=== PATIENT | female | born 1945 | race Caucasian/White ===

== ENCOUNTER 2023-10-31 11:10 | Outpatient (CLI) | payer MEDICARE, BC, SELFPAY | END 2023-10-31 11:11 | disposition home or self-care (01) | LOC: NFLDREF 11-02 08:41 | PROVIDERS: Visit Provider Nurse Practitioner Family | DX: N30.90 Cystitis, unspecified without hematuria (principal) | CPT/HCPCS: 87086; 87186 ==

== ENCOUNTER 2023-12-31 09:42 | Outpatient (CLI) | payer MEDICARE, BC, SELFPAY ==
--- OUTSIDE RECORDS SUMMARY | 2024-01-03 07:05 | XMS_ITS | Referral Summary ---
Author Organization [facility] Address [address] [place] [address] Care Team Providers Care Hosiery Mender Name Role Phone Elsewhere, Pcp Primary Care Provider Unavailabl e Source Comments Patient records contain information from all sites at [facility]. For routine questions regarding patient records, call [phone] during business hours, M-F 8:00 AM - 5:00 PM Central Time. Record requests for emergency care only can be directed to [phone] at any time.[facility] Allergies Active Allergy Reactions Criticality Noted Date Comments Hydrocodone-Acetaminophen Other (see com ments),Edema (Reselect Reaction) Medium 02/07/2017 Vicodin Sulfa (Sulfonamide Antibiotics) Rash Medium 06/16/2020 Medications Medication Sig Dispensed Refills Start Date End Date Status flecainide (TAMBOCOR) 100 mg tablet Take 100 mg by mouth every 12 (twelve) hours. Active omeprazole (PriLOSEC) [address] capsule Take 20 mg by mouth 2 (two) times a day. Active warfarin (COUMADIN) 2 mg tablet Take by mouth. 4 mgs -4 times a week, 6 mgs -3 times a week 08/26/2021 Active dilTIAZem CD (CARDIZEM CD/CARTIA XT) 240 mg 24 hr capsule Take 1 capsule (240 mg total) by mouth daily. 90 capsule 3 01/09/2022 Active calcium phosphate/melatonin (KANDY-SELTZER PM, MELATONIN, ORAL) Take 2 tablets by mouth at bedtime. Active warfarin (COUMADIN) 6 mg tablet 6mg three days and 4mg four days Orally as directed Active OLIVE LEAF EXTRACT ORAL 2 TAB Orally daily Active cholecalciferol, vitamin D3, (cholecalciferol) 25 mcg (1,000 Unit) tablet Take 25 mcg by mouth daily. Active Hospital, Clinic, or Other Facility Administered Medication Ordered Dose Route Frequency Start Date End Date Status alteplase 1 mg/mL injection 2 mg (CATHFLO ACTIVASE)Indications:Failed Total Hip Arthroplasty Subsequent Left,Primary Osteoarthritis Hip Right 2 mg cath As needed 01/31/2021 Active alteplase 1 mg/mL injection 2 mg (CATHFLO ACTIVASE)Indications:Failed Total Hip Arthroplasty Subsequent Left,Primary Osteoarthritis Hip Right 2 mg cath As needed 01/31/2021 Active Active Problems Problem Noted Date Diagnosed Date History Of Falling 01/16/2022 Failed Total Hip Arthroplasty Subsequent Left Primary Osteoarthritis Hip Right 09/27/2020 Overview (09/27/2020): Added automatically from request for surgery [id number] Pain Hip Left 06/10/2020 Overview (06/10/2020): Added automatically from request for surgery [id number] Atrial Fibrillation 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): on fleicanide and xarelto Ablation Atrioventricular Node Status Post Overview (06/18/2020): unsuccessful to convert AFIB Hypertension NOS Gastroesophageal Reflux Disease NOS Cancer Breast 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): 2001 and 2014, lumpectomy with radiation, then double mastectomy Transient Ischemic Attack Pe rsonal History Or Stroke Personal History Sick Sinus Syndrome Pacemaker Cardiac Status Post Immunizations Name Administration Dates Next Due SARS-COV-2 (COVID-19) - MODERNA(Discontinued) ,05/26/2020 Social History Tobacco Use Types Packs/Day Years Used Date Smoking Tobacco: Former Cigarettes 2 15.3 0 1961 - 02/10/1977 Smokeless Tobacco: Never Tobacco Cessation:Counseling Given: Not Answered Alcohol Use Standard Drinks/Week Comments Yes 0 (1 standard drink = 0.6 oz pur e alcohol) 1 drink per month Humiliation, Afraid, Rape, and Kick questionnair e Answer Date Recorded Within the last year, have y ou been afraid of your partner or ex-partner? No 02/27/2022 Emotionally Abused Not on file 02/27/2022 Within the last year, have y ou been kicked, hit, slapped, or otherwise physically hurt by your partner or ex-partner? No 02/27/2022 Within the last year, have y ou been raped or forced to have any kind of sexual activity by your partner or ex-partner? No 02/27/2022 Social Connection and Isolat ion Panel [NHANES] Answer Date Recorded In a typical week, how many times do you talk on the phone with family, friends, or neighbors? More than three times a week 02/27/2022 How often do you get togethe r with friends or relatives? Three times a week 02/27/2022 How often do you attend chur or scientologist services? More than 4 times per year 02/27/2022 Do you belong to any clubs o r organizations such as jewish groups, unions, fraternal or athletic groups, or school groups? Yes 02/27/2022 How often do you attend meet ings of the clubs or organizations you belong to? More than 4 times per year 02/27/2022 Are you , , di vorced, , never , or living with a partner? 02/27/2022 AUDIT-C Answer Date Recorded Q1: How often do you have a drink containing alc ohol? Monthly or less 02/27/2022 Q2: How many drinks containi ng alcohol do you have on a typical day when you are drinking? 1 or 2 02/27/2022 Q3: How often do you have si x or more drinks on one occasion? Never 02/27/2022 Overall Financial Resource Strain (CARDIA) Answe r Date Recorded How hard is it for you to pa y for the very basics like food, housing, medical care, and heating? Not very hard 02/27/2022 [facility] - Occupational Stress Questionnaire Answer Date Recorded Do you feel stress - tense, restless, nervous, or anxious, or unable to sleep at night because your mind is troubled all the time - these days? Only a little 02/27/2022 Exercise Vital Sign Answer Date Recorde d On average, how many days pe r week do you engage in moderate to strenuous exercise (like a brisk walk)? 1 day 02/27/2022 On average, how many minutes do you engage in exercise at this level? 60 min 02/27/2022 Hunger Vital Sign Answer Date Recorded Within the past 12 months, y ou worried that your food would run out before you got the money to buy more. Never true 02/28/20 22 Within the past 12 months, t he food you bought just didn't last and you didn't have money to get more. Never true 02/27/2022 PRAPARE - Transportation Answer Date Re corded In the past 12 months, has l ack of transportation kept you from medical appointments or from getting medications? No 02/14 In the past 12 months, has l ack of transportation kept you from meetings, work, or from getting things needed for daily living? No 02/27/2022 Housing Stability Vital Sign Answer Bello e Recorded In the last 12 months, was t here a time when you were not able to pay the mortgage or rent on time? No 02/27/2022 In the last 12 months, how many places have you lived? 1 02/27/2022 In the last 12 months, was t here a time when you did not have a steady place to sleep or slept in a snf (including now)? No 02/27/2022 Nutrition Answer Date Recorded Nutrition: EVOO Fat Source Yes 02/27 On average, how many serving s of fruits and vegetables do you eat per day (serving size is equal to 1 cup or approximately the size of a tennis ball)? 2-3 02/27/2022 Dental Answer Date Recorded Dental: Regular Dentist Yes 02/28/20 Employment Answer Date Recorded Employment status Retired 02/27/2022 Education Answer Date Recorded What is the highest level of school you have completed or the highest degree you have received? 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 Last Filed Vital Signs Vital Sign Reading Time Taken Comments Blood Pressure 109/61 05/03/2022 11:16 AM MST Pulse 103 05/03/2022 11:16 AM MST Temperature 37.2 ??C (99 ??F) 05/03/2022 11:16 AM MST Respiratory Rate 16 05/03/2022 11:16 AM MST Oxygen Saturation 94% 05/03/2022 11:16 AM MST Inhaled Oxygen Concentration - - Weight 77 kg (169 lb 12.1 oz) 05/02/2022 8:44 AM MST Height 164 cm (5' 4.57) 05/02/2022 8:44 AM MST Body Mass Index 28.63 05/02/2022 8:44 AM MST Plan of Treatment Not on file Medical Devices Implanted Type Area Logger All Round Device Identifier Shelf Expiration Date Model / Serial / Lot Cmnt-R Bn 1x40 - [id number] Implanted:Qty : 1 on 12/27/2020 by Aubrey Lennon M.D. at [facility] Bone Cement Left: Hip Eri Biomet [id number] 09/14/2023 [id number] / / [id number] Cmnt-R Bn 1x40 - [id number] Implanted:Qty : 1 on 12/27/2020 by Aubrey Lennon M.D. at [facility] Bone Cement Left: Hip Eri Biomet [id number] 01/13/2025 [id number] / / [id number] Bilateral Breast Implant Breast Implant Bilatera l: Breast Biotronik 377 176 Solia S 45 [id number] Implanted: (Quantity not on file) Cardiac Lead BIOTRONIK 377 176 SOLIA S 45 / [id number] / Biotronik 377 177 Solia S 53 [id number] Implanted: (Quantity not on file) Cardiac Lead BIOTRONIK 377 177 SOLIA S 53 / [id number] / Pin Left Foot Hardware e.g. pins/screws/ rods Left: Foot Shll Acet Trd Ii Chl 50d - Sna - [id number] Implanted:Qty : 1 on 10/07/2020 by Aubrey Lennon M.D. at [facility] Hip Implant Right: Hip Bridgett 04/23/2024 702-11-50D / NA / [id number] Scrw Hex 6.5x35 - Sna - [id number] Implanted:Qty : 1 on 10/07/2020 by Aubrey Lennon M.D. at [facility] Hip Implant Right: Hip Leroy 04/25/2025 7626-1095 / NA / [id number] Scrw Hex 6.5x25 - Sna - [id number] Implanted:Qty : 1 on 10/07/2020 by Aubrey Lennon M.D. at [facility] Hip Implant Right: Hip Leroy 06/30/2025 6824-2111 / NA / [id number] Lnr X3 Szd 32 - Sna - [id number] Implanted:Qty : 1 on 10/07/2020 by Aubrey Lennon M.D. at [facility] Hip Implant Right: Hip Leroy 05/03/2025 623-00-32D / NA / [id number] Hip Stm Acc Sz4 51k077 - Sna - [id number] Implanted:Qty : 1 on 10/07/2020 by Aubrey Lennon M.D. at [facility] Hip Implant Right: Hip Bridgett 08/11/2025 3407-3881 / NA / [id number] Fem Hd Blx V40 +0x32 - Sna - [id number] Implanted:Qty : 1 on 10/07/2020 by Aubrey Lennon M.D. at [facility] Hip Implant Right: Hip Leroy 08/01/2025 6570-0-132 / NA / [id number] Shll Acet Trd Ii Chl 52e - [id number] Implanted:Qty : 1 on 05/02/2022 by Aubrey Lennon M.D. at [facility] Hip Implant Left: Hip Bridgett 03/14/2027 702-11-52E / / [id number] Scrw Hex 6.5x20 - [id number] Implanted:Qty : 1 on 05/02/2022 by Aubrey Lennon M.D. at [facility] Hip Implant Left: Hip Bridgett 02/27/2027 7851-1396 / / [id number] Scrw Hex 6.5x40 - [id number] Implanted:Qty : 1 on 05/02/2022 by Aubrey Lennon M.D. at [facility] Hip Implant Left: Hip Bridgett 02/12/2027 6283-7987 / / [id number] Scrw Hex 6.5x40 - [id number] Implanted:Qty : 1 on 05/02/2022 by Aubrey Lennon M.D. at [facility] Hip Implant Left: Hip Leroy 02/20/2027 4088-1300 / / VCMH Lnr X3 Yosef 36 - [id number] Implanted:Qty : 1 on 05/02/2022 by Aubrey Lennon M.D. at [facility] Hip Implant Left: Hip Bridgett 03/20/2027 723-00-36E / / [id number] Hip Stm Rstn Cmnt +0x21 - [id number] Implanted:Qty : 1 on 05/02/2022 by Aubrey Lennon M.D. at [facility] Hip Implant Left: Hip Bridgett [id number] 10/06/2026 6276-1-021 / / [id number] Fem Hd Blx +2.5x36 - [id number] Implanted:Qty : 1 on 05/02/2022 by Aubrey Lennon M.D. at [facility] Hip Implant Left: Hip Bridgett 01/29/2027 6570-0-536 / / [id number] Knee Implant Bharat Knee Implant Bilatera l: Knee Dental Implants Misc Other Mouth Bilateral Ocular (Eye) Implant Ocular (Eye) Implant Bilatera l: Eye Leroy Orthodoxy Modular Hip System 115mm X 18mm Implanted:Qty : 1 on 05/02/2022 by Aubrey Lennon M.D. at [facility] Orthopedic Other Left: Hip Bridgett [id number] 09/07/2026 6276-7-418 / / [id number] Biotronik [id number] Eluna 8 Abraham [id number] Implanted: (Quantity not on file) Pacemaker BIOTRONIK [id number] ELUNA 8 ABRAHAM / [id number] / Pacemaker-07/15 Implanted:04/2016 (Quantity not on file) Pacemaker Chest Explanted Type Area Logger All Round Device Identifier Shelf Expiration Date Model / Serial / Lot Scrw Hex 6.5x30 - [id number] Explanted:Qty : 1 on 10/07/2020 at [facility] Hip Implant Right: Hip Bridgett 06/22/2025 8110-7069 / / [id number] Lnr X3 Szd 32 - [id number] Implanted:Qty : 1 on 06/24/2020 by Aubrey Lennon M.D. at [facility] Explanted:Qty : 1 on 12/27/2020 by Aubrey Lennon M.D. Hip Implant Left: Hip Leroy 04/02/2025 623-00-32D / / [id number] Hip Stm Acc Sz4 02f748 - [id number] Implanted:Qty : 1 on 06/24/2020 by Aubrey Lennon M.D. at [facility] Explanted:Qty : 1 on 12/27/2020 by Aubrey Lennon M.D. Hip Implant Left: Hip Leroy 04/29/2025 7868-9533 / / [id number] Fem Hd Blx -4x32 - [id number] Implanted:Qty : 1 on 06/24/2020 by Aubrey Lennon M.D. at [facility] Explanted:Qty : 1 on 12/27/2020 by Aubrey Lennon M.D. Hip Implant Left: Hip Bridgett 01/26/2025 6570-0-032 / / [id number] Shll Acet Trd Ii Chl 50d - [id number] Implanted:Qty : 1 on 06/24/2020 by Aubrey Lennon M.D. at [facility] Explanted:Qty : 1 on 12/27/2020 by Aubrey Lennon M.D. Hip Implant Left: Hip Bridgett 08/26/2023 702-11-50D / / [id number] Scrw Hex 6.5x30 - [id number] Implanted:Qty : 1 on 06/24/2020 by Aubrey Lennon M.D. at [facility] Explanted:Qty : 1 on 12/27/2020 by Aubrey Lennon M.D. Hip Implant Left: Hip Bridgett 01/21/2025 6491-9806 / / [id number] Scrw Hex 6.5x35 - [id number] Implanted:Qty : 1 on 06/24/2020 by Aubrey Lennon M.D. at [facility] Explanted:Qty : 1 on 12/27/2020 by Aubrey Lennon M.D. Hip Implant Left: Hip Leroy 12/29/2024 6706-5912 / / 26D Hip Stm Prs Cmnt Std 105 - [id number] Implanted:Qty : 1 on 12/27/2020 by Aubrey Lennon M.D. at [facility] Explanted:Qty : 1 on 05/02/2022 by Aubrey Lennon M.D. Hip Implant Left: Hip Depuy Synthes 11/13/2029 1541-01-000 / / [id number] Shll Acet Prs Cmnt 32x42 - [id number] Implanted:Qty : 1 on 12/27/2020 by Aubrey Lennon M.D. at [facility] Explanted:Qty : 1 on 05/02/2022 by Aubrey Lennon M.D. Hip Implant Left: Hip Depuy Synthes 07/14/2025 [id number] / / [id number] Fem Hd Art Ez +1x32 - [id number] Implanted:Qty : 1 on 12/27/2020 by Aubrey Lennon M.D. at [facility] Explanted:Qty : 1 on 05/02/2022 by Aubrey Lennon M.D. 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 Advance Directives 06/24/2020 9:38 AM Italo Castillo Jr.[facility] PO * Full Code (Latest Code Status on File) Date Activated Date Inactivated Comments 05/02/2022 6:25 PM 05/03/2022 3:50 PM Question Answer Comments Full Code: Not Discussed Due to: Patient not available * Full Code Date Activated Date Inactivated Comments 05/02/2022 9:50 AM 05/02/2022 6:25 PM Question Answer Comments Full Code: Not Discussed Due to: Patient not available * Full Code Date Activated Date Inactivated Comments 10/07/2020 12:04 PM 10/07/2020 11:13 PM Question Answer Comments Full Code: Not Discussed Due to: Patient not available Healthcare Agents on File Name Relationship Healthcare Agent Relationship Communication Italo Castillo Son Health Care Agent Marcelo Castillo Jr. Son First Alternate Health Care Agent Bartolome Castillo Son First Alternate Health Care Agent Care Teams Hosiery Mender Relationship Specialty Start Date End Date Elsewhere, Pcp PCP - General Family Medicine 10/07/20
--- OUTSIDE RECORDS SUMMARY | 2024-01-03 07:05 | XMS_ITS | Clinical Summary ---
Author Organization [facility] Address [address] [place] [address] Care Team Providers Care Clinical Researcher Name Role Phone Elsewhere, Pcp Primary Care Provider Unavailabl e Source Comments Patient records contain information from all sites at [facility]. For routine questions regarding patient records, call [phone] during business hours, M-F 8:00 AM - 5:00 PM Central Time. Record requests for emergency care only can be directed to [phone] at any time.[facility] Allergies Active Allergy Reactions Criticality Noted [...] (09/27/2020): Added automatically from request for surgery [id number] Pain Hip Left 06/10/2020 Overview (06/10/2020): Added automatically from request for surgery [id number] Atrial Fibrillation 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): on [...] Next Due SARS-COV-2 (COVID-19) - MODERNA(Discontinued) ,05/26/2020 Family History Medical History Relation Name Comments Stroke Father Albino Coburn Sr Transient ischemic attack Father Albino Coburn Sr Colon cancer Father's Brother Atrial fibrillation Mother Daisy Coburn Stroke Mother Daisy Cobrun Thyroid disease Mother Daisy Coburn Transient ischemic attack Mother Daisy Coburn Atrial fibrillation Sister 1 Breast cancer Sister 1 TIA - Transient ischaemic attack Sister 1 Breast cancer Sister 2 Daiys Oblouk Recurred 2019 to spine, liver, kidney Parkinson disease Sister 3 Barbara Paniagua Parkinsonism Sister 3 Barbara Paniagua Skin cancer Sister 3 Barbara Paniagua Had Moes p rocedure twice Stroke Sister 3 Barbara Paniagua Thyroid disease Sister 4 Angelina Prince Cervical cancer Neg Hx Ovarian cancer Neg Hx Uterine cancer Neg Hx Relation Name Status Comments Father Albino Coburn Sr Father's Brother Mother Daisy Coburn Sister 1 Sister 2 Daisy Oblouk Sister 3 Barbara Paniagua Sister 4 Angelina Prince Social History Tobacco Use Types Packs/Day Years [...] 02/27/2022 How often do you attend chur ch or tenriism services? More than 4 times per year 02/27/2022 Do you belong to any clubs o r organizations such as mormonism groups, unions, fraternal or athletic groups, or [...] care, and heating? Not very hard 02/27/2022 [facility] - Occupational Stress [...] place to sleep or slept in a alf (including now)? No 02/27/2022 Nutrition Answer Date [...] Master's degree (e.g., MA, MS, Eron, MEd, EMERGENCY ROOM RN, HONEY) 06/05/2020 Sex and Gender Information Value Date Recorded Sex Assigned at Female 01/14/2021 7:36 PM CDT Gender Identity Female 02/18/2018 11:13 AM MEDICAL INFORMATION OFFICER Sexual Orientation Straight 02/18/2018 11 :13 AM MEDICAL INFORMATION OFFICER Last Filed Vital Signs Vital Sign Reading [...] 05/02/2022 8:44 AM MST Plan of Treatment Health Maintenance Due Date Last Done Comments Hepatitis C Screening 1945 Office Visit for Blood Press ure Check / Re-check 01/16/2023 01/16/2022 Depression Screening (Annual PHQ-2) 04/16/2023 Fall Risk Screen (Annual) 04/16/2023 COVID-19 Vaccine (4 - 2022-2 4 season) 2023 02/23/2021, 06/23/2020, 05/26/2020 Influenza Vaccine (#1) 2024 3, 12/29/2021, 02/17/2021, Additional history exists DTaP,Tdap,and Td Vaccines (2 - Td or Tdap) 02/14/2025 02/14/2015 Mammogram Discontinued 12/25/2014 Zoster Vaccines Completed 06/11/2019, 02/01/2019 Pneumococcal vaccine (65+ years) Completed 01/18/2023, 03/03/2015, 03/02/2015 Medical Devices Implanted Type Area Personal Clothing Laundry Aide Device Identifier Shelf Expiration Date Model / Serial / Lot Cmnt-R Bn 1x40 - [id number] Implanted:Qty : 1 on 12/27/2020 by Aubrey Lennon M.D. at [facility] Bone Cement Left: Hip Eri Biomet [id number] 09/14/2023 [id number] / / [id number] Cmnt-R Bn 1x40 - [id number] Implanted:Qty : 1 on 12/27/2020 by Aubrey Lennon M.D. at [facility] Bone Cement Left: Hip Eri Biomet [id number] 01/13/2025 [id number] / / [id number] Bilateral Breast Implant Breast Implant Bilatera l: Breast Biotronik 377 176 Solia S 45 [id number] Implanted: (Quantity not on file) Cardiac Lead BIOTRONIK 377 176 SOLIA S 45 / [id number] / Biotronik 377 177 Solia S 53 [id number] Implanted: (Quantity not on file) Cardiac Lead BIOTRONIK 377 177 SOLIA S 53 / [id number] / Pin Left Foot Hardware e.g. pins/screws/ rods Left: Foot Shll Acet Trd Ii Chl 50d - Sna - [id number] Implanted:Qty : 1 on 10/07/2020 by Aubrey Lennon M.D. at [facility] Hip Implant Right: Hip Bridgett 04/23/2024 702-11-50D / NA / [id number] Scrw Hex 6.5x35 - Sna - [id number] Implanted:Qty : 1 on 10/07/2020 by Aubrey Lennon M.D. at [facility] Hip Implant Right: Hip [place] 04/25/2025 5484-2682 / NA / [id number] Scrw Hex 6.5x25 - Sna - [id number] Implanted:Qty : 1 on 10/07/2020 by Aubrey Lennon M.D. at [facility] Hip Implant Right: Hip [place] 06/30/2025 9279-2415 / NA / [id number] Lnr X3 Szd 32 - Sna - [id number] Implanted:Qty : 1 on 10/07/2020 by Aubrey Lennon M.D. at [facility] Hip Implant Right: Hip Bridgett 05/03/2025 623-00-32D / NA / [id number] Hip Stm Acc Sz4 13r772 - Sna - [id number] Implanted:Qty : 1 on 10/07/2020 by Aubrey Lennon M.D. at [facility] Hip Implant Right: Hip [place] 08/11/2025 3872-7734 / NA / [id number] Fem Hd Blx V40 +0x32 - Sna - [id number] Implanted:Qty : 1 on 10/07/2020 by Aubrey Lennon M.D. at [facility] Hip Implant Right: Hip Bridgett 08/01/2025 6570-0-132 / NA / [id number] Shll Acet Trd Ii Chl 52e - [id number] Implanted:Qty : 1 on 05/02/2022 by Aubrey Lennon M.D. at [facility] Hip Implant Left: Hip Bridgett 03/14/2027 702-11-52E / / [id number] Scrw Hex 6.5x20 - [id number] Implanted:Qty : 1 on 05/02/2022 by Aubrey Lennon M.D. at [facility] Hip Implant Left: Hip [place] 02/27/2027 5510-2341 / / [id number] Scrw Hex 6.5x40 - [id number] Implanted:Qty : 1 on 05/02/2022 by Aubrey Lennon M.D. at [facility] Hip Implant Left: Hip Bridgett 02/12/2027 4537-7351 / / [id number] Scrw Hex 6.5x40 - [id number] Implanted:Qty : 1 on 05/02/2022 by Aubrey Lennon M.D. at [facility] Hip Implant Left: Hip Bridgett 02/20/2027 3473-6252 / / [facility] Lnr X3 Yosef 36 - [id number] Implanted:Qty : 1 on 05/02/2022 by Aubrey Lennon M.D. at [facility] Hip Implant Left: Hip Bridgett 03/20/2027 723-00-36E / / [id number] Hip Stm Rstn Cmnt +0x21 - [id number] Implanted:Qty : 1 on 05/02/2022 by Aubrey Lennon M.D. at [facility] Hip Implant Left: Hip [place] [id number] 10/06/2026 6276-1-021 / / [id number] Fem Hd Blx +2.5x36 - [id number] Implanted:Qty : 1 on 05/02/2022 by Aubrey Lennon M.D. at [facility] Hip Implant Left: Hip Bridgett 01/29/2027 6570-0-536 / / [id number] Knee Implant Bharat Knee Implant Bilatera l: Knee Dental Implants Misc Other Mouth Bilateral Ocular (Eye) Implant Ocular (Eye) Implant Bilatera l: Eye Bridgett [employer] Modular Hip System 115mm X 18mm Implanted:Qty : 1 on 05/02/2022 by Aubrey Lennon M.D. at [facility] Orthopedic Other Left: Hip [place] [id number] 09/07/2026 6276-7-418 / / [id number] Biotronik 954870 Eluna 8 Abraham [id number] Implanted: (Quantity not on file) Pacemaker BIOTRONIK [id number] ELUNA 8 ABRAHAM / [id number] / Pacemaker-07/15 Implanted:04/2016 (Quantity not on file) Pacemaker Chest Explanted Type Area Personal Clothing Laundry Aide Device Identifier Shelf Expiration Date Model / Serial / Lot Scrw Hex 6.5x30 - [id number] Explanted:Qty : 1 on 10/07/2020 at [facility] Hip Implant Right: Hip Bridgett 06/22/2025 6541-1986 / / [id number] Lnr X3 Szd 32 - [id number] Implanted:Qty : 1 on 06/24/2020 by Aubrey Lennon M.D. at [facility] Explanted:Qty : 1 on 12/27/2020 by Aubrey Lennon M.D. Hip Implant Left: Hip [place] 04/02/2025 623-00-32D / / [id number] Hip Stm Acc Sz4 97j651 - [id number] Implanted:Qty : 1 on 06/24/2020 by Aubrey Lennon M.D. at [facility] Explanted:Qty : 1 on 12/27/2020 by Aubrey Lennon M.D. Hip Implant Left: Hip [place] 04/29/2025 5791-5097 / / [id number] Fem Hd Blx -4x32 - [id number] Implanted:Qty : 1 on 06/24/2020 by Aubrey Lennon M.D. at [facility] Explanted:Qty : 1 on 12/27/2020 by Aubrey Lennon M.D. Hip Implant Left: Hip [place] 01/26/2025 6570-0-032 / / [id number] Shll Acet Trd Ii Chl 50d - [id number] Implanted:Qty : 1 on 06/24/2020 by Aubrey Lennon M.D. at [facility] Explanted:Qty : 1 on 12/27/2020 by Aubrey Lennno M.D. Hip Implant Left: Hip Bridgett 08/26/2023 702-11-50D / / [id number] Scrw Hex 6.5x30 - [id number] Implanted:Qty : 1 on 06/24/2020 by Aubrey Lennon M.D. at [facility] Explanted:Qty : 1 on 12/27/2020 by Aubrey Lennon M.D. Hip Implant Left: Hip [place] 01/21/2025 9413-9836 / / [id number] Scrw Hex 6.5x35 - [id number] Implanted:Qty : 1 on 06/24/2020 by Aubrey Lennon M.D. at [facility] Explanted:Qty : 1 on 12/27/2020 by Aubrey Lennon M.D. Hip Implant Left: Hip [place] 12/29/2024 0175-7524 / / [id number] Hip Stm Prs Cmnt Std 105 - [id number] Implanted:Qty : 1 on 12/27/2020 by Aubrey Lennon M.D. at [facility] Explanted:Qty : 1 on 05/02/2022 by Aubrey Lennon M.D. Hip Implant Left: Hip Depuy Synthes 11/13/2029 1541-01-000 / / [id number] Shll Acet Prs Cmnt 32x42 - [id number] Implanted:Qty : 1 on 12/27/2020 by Aubrey Lennon M.D. at [facility] Explanted:Qty : 1 on 05/02/2022 by Aubrey Lennon M.D. Hip Implant Left: Hip Depuy Synthes 07/14/2025 [id number] / / [id number] Fem Hd Art Ez +1x32 - [id number] Implanted:Qty : 1 on 12/27/2020 by Aubrey Lennon M.D. at [facility] Explanted:Qty : 1 on 05/02/2022 by Aubrey Lennon M.D. 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
--- OUTSIDE RECORDS SUMMARY | 2024-01-03 07:05 | XMS_ITS ---
Author Organization [facility] Address [address] [place] [address] Care Team Providers Care Box Inspector Name Role Phone Unavailable Unavailable Unavailable Surgery Details Not on file Complications Check Surgery Details section. Procedure Estimated Blood Loss Check Surgery Details section. Procedure Findings Check Surgery Details section. Procedure Specimens Taken Check Surgery Details section.
--- OUTSIDE RECORDS SUMMARY | 2024-01-03 07:05 | XMS_ITS | Patient Health Record ---
Author Organization [facility] Address [address] [place], [place] [id number] Care Team Providers Care [employer] Supervisor Name Role Phone SAYRA MEDELLIN Primary Care Provider Allergies Allergen (clinical drug ingredient) Drug/Non Drug Allergy documented on EMR Reaction Allergy Type Onset Date Status Substance with sulfonamide structure and antibacterial mechanism of action (substance) Sulfa Antibiotics Unknown Drug Allergy Active Vicodin Unknown Drug Allergy Active Results Component Value Reference Range Notes CELIAC DISEASE COMP PNL,ADUL T,GLIADIN Ab IgA Reviewed date:07/02/2023 11:06:33 AM Interpretation: Performing Lab:[facility] [id number] , [id number] [place] Notes/Report: IgA 374 81 - 463 mg/dL tTG IgA is not, in and of itself, diagnostic for celiac disease (gluten-sensitive enteropathy). Results should be considered in conjunction with other laboratory test results and the patient's clinical condition to make an appropriate diagnosis. The magnitude of the reported IgA levels cannot be correlated to an endpoint titer. Reported results were determined using assays performed on the [employer] 2200. Results obtained with different manufacturers' assay may not be used interchangeably. DGP IgA is not, in and of itself, diagnostic for celiac disease (gluten-sensitive enteropathy). Results should be considered in conjunction with other laboratory test results and the patient's clinical condition to make an appropriate diagnosis. The magnitude of the reported DGP IgA levels cannot be correlated to an endpoint titer. Reported results were determined using assays performed on the [employer] 2200. Results obtained with different manufacturers' assay may not be used interchangeably. Tissue Transglutaminase Antibody IgA <0.5 <=14.9 U/mL tTG IgA Reference Range: < 15.0 Negative >=15.0 Positive Tissue Transglutaminase Antibody IgA Result Negative Negative Gliadin (Deamidated) Antibod y IgA 0.3 <=14.9 U/mL DGP IgA Reference Range: < 15.0 Negative >=15.0 Positive Gliadin (Deamidated) Antibod y IgA Result Negative Negative COMPREHENSIVE METABOLIC PANE L includes eGFR Reviewed date:07/19/2023 08:57:16 AM Interpretation: Performing Lab:[facility] [id number], [id number] [place] Notes/Report: Fasting: Yes NON-FASTING Glucose 109 70 - 99 mg/dL Glucose refere nce range reflects fasting state. Urea Nitrogen (BUN) 16 8 - 36 mg/dL Creatinine 0.96 0.51 - 1.08 mg/dL eGFRcr CKD-EPI 60 >=60 mL/min/1.73m2 eGFRcr calculated using the CKD-EPI 2020 equation BUN/Creatinine Ratio 16.7 10.0 - 28.0 Sodium 143 135 - 145 mmol/L Potassium 5.1 3.6 - 5.3 mmol/L Chloride 105 95 - 109 mmol/L Carbon Dioxide (CO2) 27 20 - 31 mmol/L Anion Gap 11 4 - 18 Protein, Total 7.2 6.0 - 7.7 g/dL Albumin 4.4 3.8 - 5.1 g/dL Globulin 2.8 1.7 - 3.3 g/dL Albumin/Globulin Ratio 1.6 1.3 - 2.7 Calcium 9.7 8.7 - 10.4 mg/dL Alkaline Phosphatase 109 42 - 146 IU/L Alanine Aminotransferase 16 5 - 46 IU/L Aspartate Aminotransferase 16 11 - 40 IU/L Bilirubin, Total 0.3 <=1.3 mg/dL Abdominal Ultrasound Complet e Reviewed date:07/19/2023 08:35:43 AM Interpretation: Performing Lab: Notes/Report: Reason For Referral Reason eval & treat Diagnosis 1 Angiolipoma (D17.9) Referral Organization [facility] Referring Provider First Name SAYRA Referring Provider Last Name LACIE Referring Provider Speciality Internal M edicine Referred Provider Anne Must[facility] Referred Provider Specialty Nephrology Referral Priority Routine Medications Medication SIG (Take, Route, Frequency, Duration) Notes Start Date End Date Status dilTIAZem HCl ER 180 MG 1 tablet Orally Once a day Active Vitamin E 180 MG (400 UNIT) 2 capsule Orally in the morning Active Magnesium - as directed Orally 500 mg- once a day Active Tylenol PM Extra Strength 500-25 MG 1 tablet at bedtime as needed Orally Once a day Active [place] 500 MG as directed Orally 2 capsules in the morning Active Aspirin 81 81 MG 1 tablet Orally Once a day Not-Taking Flecainide Acetate 100 MG 0.5 tablet Orally every 12 hrs Active Warfarin Sodium 4 MG 1 tablet Orally Once a day 4MG 4x wk 6MG 3x week Active Immunizations Vaccine Route Administration Date Status Comme nts Pneumococcal Unknown 01/18/2023 Administered SHINGRIX Unknown 01/18/2023 Administered Social History Tobacco Use: Social History Observation Description Date Details (start date - stop date) Former Smoker NA - NA AUDIT-C (Standard) Question Answer Notes Did you have a drink contain ing alcohol in the past year? Yes How often did you have six o r more drinks on one occasion in the past year? Never (0 point) How many drinks did you have on a typical day when you were drinking in the past year? 1 or 2 drinks (0 point) How often did you have a dri nk containing alcohol in the past year? Monthly or less (1 point) Points 1 Interpretation Negative Tobacco Control (Standard) Question Answer Notes Tobacco use: Former smoker How long has it been since y ou last smoked? 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) Active confirmed Problem 94176199 Chronic cough (R05.3) Active confirmed Vital Signs Temperature 97.4 degrees Fahrenheit 07/17/2023 Oximetry 94 07/17/2023 Blood pressure diastolic 60 mm Hg 07/17/2023 Height 65 in 07/17/2023 Blood pressure systolic 124 mm Hg 07/17/2023 Weight 176.3 lbs 07/17/2023 BMI 29.33 kg/m2 07/17/2023 Encounters Encounter Location Date Provider Diagnosis [facility] [address] [place], [place] [id number] 06/14/2023 SAYRA MEDELLIN [facility] [address] [place] [id number] 06/19/2023 SAYRA MEDELLIN [facility] [address] [place], [place] [id number] 06/20/2023 SAYRA MEDELLIN Irritable bowel syndrome with both constipation and diarrhea K58.2 ; Paroxysmal atrial fibrillation I48.0 ; Shortness of breath R06.02 ; History of breast cancer Z85.3 ; Pulmonary fibrosis J84.10 and Chronic cough R05.3 [facility] [address] [place], [place] [id number] 06/20/2023 SAYRA MEDELLIN [facility] [address] [place], [place] [id number] 07/05/2023 SAYRA MEDELLIN [facility] [address] [place], [place] [id number] 07/17/2023 SAYRA MEDELLIN Paroxysmal atrial fibrillation I48.0 ; Chest pain, unspecified type R07.9 ; Pulmonary fibrosis J84.10 ; Irritable bowel syndrome with both constipation and diarrhea K58.2 and Excessive flatus R14.3 [facility] [address] [place], [place] [id number] 07/17/2023 SAYRA MEDELLIN Excessive flatus R14 .3 ; Irritable bowel syndrome with both constipation and diarrhea K58.2 and Chest pain, unspecified type R07.9 [facility] [address] [place], [place] [id number] 07/18/2023 SAYRA MEDELLIN Excessive flatus R14 .3 ; Irritable bowel syndrome with both constipation and diarrhea K58.2 and Chest pain, unspecified type R07.9 Assessments Encounter Date Diagnosis (ICD Code) Assessment Notes Treatment Notes Treatment Clinical Notes 06/20/2023 Paroxysmal atrial fibrillation (ICD-10 - I48.0) Currently appears to be in normal sinus rhythm, follow-up with cardiology as directed 06/20/2023 Irritable bowel syndrome with both constipation and diarrhea (ICD-10 - K58.2) With predominant constipation, patient denies any inflammatory bowel disease and states she has tried multiple evtt-lbb-mshbflp and multitude of medications. We discussed if she had been on Bentyl and she does not recall. 07/17/2023 Paroxysmal atrial fibrillation (ICD-10 - I48.0) Stable with controlled ventricular rate, follow-up with cardiology 07/17/2023 Irritable bowel syndrome with both constipation and diarrhea (ICD-10 - K58.2) 07/17/2023 Excessive flatus (ICD-10 - R14.3) 07/18/2023 Irritable bowel syndrome with both constipation and diarrhea (ICD-10 - K58.2) 07/18/2023 Excessive flatus (ICD-10 - R14.3) 06/20/2023 Shortness of breath (ICD-10 - R06.02) Chronic and persisting, suspect from history and review of CAT scan of chest from February 21, 2023 that is likely due to radiation fibrosis and/or pulmonary hypertension. Request pulmonary consult notes. Reviewed spirometry which does show moderate airflow obstruction without response to bronchodilator 07/17/2023 Chest pain, unspecified type (ICD-10 - R07.9) Mild continue present management and following with cardiology 07/17/2023 Chest pain, unspecified type (ICD-10 - R07.9) 07/18/2023 Chest pain, unspecified type (ICD-10 - R07.9) 06/20/2023 History of breast cancer (ICD-10 - Z85.3) With bilateral mastectomy 07/17/2023 Pulmonary fibrosis (ICD-10 - J84.10) Chronic-currently without any wheeze, cough or shortness of breath, follow-up with pulmonology 06/20/2023 Pulmonary fibrosis (ICD-10 - J84.10) Noted on CT scan as above 07/17/2023 Irritable bowel syndrome with both constipation and diarrhea (ICD-10 - K58.2) Chronic with symptoms of flatulence-recommende d maryicone as previous 06/20/2023 Chronic cough (ICD-10 - R05.3) Orazidvpmh-seoiux-an with pulmonology 07/17/2023 Excessive flatus (ICD-10 - R14.3) As above 06/20/2023 Other Patient states last annual wellness was February 2023 -Pulmonary function test reviewed, reviewed allergy profile profile reviewed, consult notes from prior primary care provider from February and April reviewed and CT scan that was ordered by urology from February 21, 2023 reviewed Disclaimer: This note was completed using voice recognition software, in house counsel errors may occur. 07/17/2023 Other COMPLEXITY: I determine this patient to be of MODERATE complexity ------- SERVICES PROVIDED: -Obtaining and reviewing the discharge information (eg, discharge summary, as available, or continuity of care documents): YES, all available discharge information was reviewed prior to encounter with patient. Many of these documents were reviewed in real time with the patient during the encounter as well. -Education of patient, family, guardian, and/or caregiver: YES, patient was educated regarding the above listed conditions, as outlined within the 'Treatment' section. -Assessment and support for treatment regimen adherence and medication management: YES, medication reconciliation was conducted at todays visit. -Establishment or reestablishment of REFERRALS and arranging for needed community resources: YES, -Reviewing the need for or follow-up on pending diagnostic TESTS and TREATMENTS: YES, -Interaction with other qualified health medicare sales executive (REFERRALS) who will assume or reassume care of the patient's system-specific problems: YES, Plan Of Treatment Pending Test Test Name Order Date CELIAC DISEASE COMP PANEL, ADULT 024 Next Appt Details Provider Name:SAYRA FAUSTIN, 02/21/2024 10:30:00 AM, [address] [facility], [place], [place], [id number], Insurance Providers Payer Name Payer Address Payer Phone Subscriber Number Group Number Insured Name Patient Relationship to Insured Coverage Start Date Coverage End Date MEDICARE [address] [place], [place] [id number] JAGJITTIFFANY NEW Self - patient is the insured [facility] [address] [place], [place] [id number] TIFFANY CAGLE Self - patient is the insured Medical (General) History Medical History History ICD Code A-fib Irregular heart beat GERD IBSC Anemia Rt & Lt Breast DBL Mastectomy-Reconstruc tion Surgical History Surgery Date(Month/Year) Bilateral Hip replacement Bilateral Knee Replacement Hospitalization History Reason Date(Month/Year) Osteomyelitis Lt hip
--- OUTSIDE RECORDS SUMMARY | 2024-01-03 07:05 | XMS_ITS | Patient Health Record ---
Author Organization [facility] Address [address] [facility] [address] [place] [address] [id number] Care Team Providers Care Wireless Communications Engineer Name Role Phone Raymond Dominguez MD Primary Care Provider U ferminailable JorgeabdoulayePauline atkins Unavailable [phone] DorothywilbertJjie Unavailable [phone] Allergies Allergen (clinical drug ingredient) Drug/Non Drug Allergy documented on EMR Reaction Allergy Type Onset Date Status Vicodin Unknown Drug Allergy Active Substance with sulfonamide structure and antibacterial mechanism of action (substance) Sulfa Antibiotics Unknown Drug Allergy Active Results Component Value Reference Range Notes COCCIDIOIDES SCREEN w/IMDF C ONFIRM Reviewed date:06/04/2023 03:04:32 PM Interpretation: Performing Lab:[facility], [id number] [place] Notes/Report: Fasting: No Coccidioides Antibody IgG (EIA) Indeterminate Negative Correlate with the clinical findings and repeat testing in 1 to 3 weeks if clinically warranted. Coccidioides Antibody IgM (EIA) Negative Negative The [facility] Cocci Ab EIA Test Kit measures the expression of Anti-TP IgM antibodies and Anti-CF IgG antibodies. Antibodies against the TP antigen become measurable early in the acute phase of infection, between the first [50%] and third [90%] weeks of onset, while antibodies against the CF antigen become measureable between the second and 28th week. COCCIDIOIDES COMP FIX Reviewed date:06/04/2023 03:04:06 PM Interpretation: Performing Lab:[facility], [id number] [place] Notes/Report: Fasting: No Coccidioides Titer <1:2 <1:2 This test was developed and its performance characteristics determined by [facility]. It has not been cleared or approved by the US Food and Drug Administration (FDA). The FDA has determined that such clearance or approval is not necessary since the laboratory is approved under CLIA for high complexity testing. IgE Reviewed date:06/04/2023 03:03:29 PM Interpretation: Performing Lab:[facility], [id number] [place] Notes/Report: Fasting: No IgE 58 <=100 IU/mL COMPREHENSIVE METABOLIC PANE L Reviewed date:06/04/2023 03:03:50 PM Interpretation: Performing Lab:[facility], [id number] [place] Notes/Report: Fasting: No Glucose 113 70 - 99 mg/dL Glucose refere nce range reflects fasting state. Urea Nitrogen (BUN) 17 8 - 36 mg/dL Creatinine 0.86 0.51 - 1.08 mg/dL eGFRcr CKD-EPI 69 >=60 mL/min/1.73m2 eGFRcr calculated using the CKD-EPI 2020 equation BUN/Creatinine Ratio 19.8 10.0 - 28.0 Sodium 140 135 - 145 mmol/L Potassium 4.2 3.6 - 5.3 mmol/L Chloride 101 95 - 109 mmol/L Carbon Dioxide (CO2) 27 20 - 31 mmol/L Anion Gap 12 4 - 18 Protein, Total 7.0 6.0 - 7.7 g/dL Albumin 4.4 3.8 - 5.1 g/dL Globulin 2.6 1.7 - 3.3 g/dL Albumin/Globulin Ratio 1.7 1.3 - 2.7 Calcium 9.6 8.7 - 10.4 mg/dL Alkaline Phosphatase 105 42 - 146 IU/L Alanine Aminotransferase 12 5 - 46 IU/L Aspartate Aminotransferase 17 11 - 40 IU/L Bilirubin, Total 0.3 <=1.3 mg/dL BANNER LILI Reviewed date:06/04/2023 03:04:53 PM Interpretation: Performing Lab:[facility], [id number] [place] Notes/Report: Fasting: No Dermatophagoides farinae Conc IgE: <0.10 <0.10 kU/L Dermatophagoides farinae Class IgE: 0 0 Class Dermatophagoides pteronyssinus Conc IgE: <0.10 <0.10 kU/L Dermatophagoides pteronyssinus Class IgE: 0 0 Class Cat Epithelium and Dander Conc IgE: <0.10 <0.10 kU/L Cat Epithelium and Dander Class IgE: 0 0 Class Dog Dander Conc IgE: <0.10 <0.10 kU/L Dog Dander Class IgE: 0 0 Class Mouse Urine Protein Conc IgE: <0.10 <0.10 kU/L Mouse Urine Proteins Class IgE: 0 0 Class Rwandan Cockroach Conc IgE: <0.10 <0.10 kU/L Rwandan Cockroach Class IgE: 0 0 Class Bermuda Grass Conc IgE: 0.17 <0.10 kU/L B[place] Grass Class IgE: 0/1 0 Class Allan Grass Conc IgE: 0.26 <0.10 kU/L Allan Grass Class IgE: 0/1 0 Class Watkins Grass Conc IgE: 0.41 <0.10 kU/L Watkins Grass Class IgE: 1 0 Class Randall Grass Conc IgE: 0.37 <0.10 kU/L Randall Grass Class IgE: 1 0 Class Alternaria alternata Conc IgE: <0.10 <0.10 kU/L Alternaria alternata Class IgE: 0 0 Class Aspergillus fumigatus Conc IgE: <0.10 <0.10 kU/L Aspergillus fumigatus Class IgE: 0 0 Class Cladosporium herbarum Conc IgE: <0.10 <0.10 kU/L Cladosporium herbarum Class IgE: 0 0 Class Penicillium notatum Conc IgE: <0.10 <0.10 kU/L Penicillium notatum Class IgE: 0 0 Class Yaritza Tree Conc IgE: <0.10 <0.10 kU/L Yaritza Tree Class IgE: 0 0 Class [place] Tree Conc IgE: <0.10 <0.10 kU/L [place] Tree Class IgE: 0 0 Class Elm Tree Conc IgE: <0.10 <0.10 kU/L Elm Tree Class IgE: 0 0 Class Noble Enoc Tree Conc IgE: <0.10 <0.10 kU/L Noble Enoc Tree Class IgE: 0 0 Class Juniper Tree Conc IgE: <0.10 <0.10 kU/L Juniper Tree Class IgE: 0 0 Class Maple Tree Conc IgE: <0.10 <0.10 kU/L Maple Tree Class IgE: 0 0 Class [place] Tree Conc IgE: <0.10 <0.10 kU/L [place] Tree Class IgE: 0 0 Class Tamworth Tree Conc IgE: <0.10 <0.10 kU/L [place] Tree Class IgE: 0 0 Class [place] Tree Conc IgE: <0.10 <0.10 kU/L [place] Tree Class IgE: 0 0 Class Common Pigweed Conc IgE: <0.10 <0.10 kU/L Common Pigweed Class IgE: 0 0 Class Common Ragweed Conc IgE: <0.10 <0.10 kU/L Common Ragweed Class IgE: 0 0 Class Mugwort Conc IgE: <0.10 <0.10 kU/L Mugwort Class IgE: 0 0 Class Indonesian Thistle Conc IgE: <0.10 <0.10 kU/L Indonesian Thistle Class IgE: 0 0 Class Sheep Frohna Conc IgE: <0.10 <0.10 kU/L Sheep Frohna Class IgE: 0 0 Class CBC With Differential/Platel et Reviewed date:06/14/2023 09:48:01 AM Interpretation: Performing Lab:[facility] [id number] , [id number] [place] Notes/Report: Fasting: No WBC 7.8 4.0 - 11.0 k/mm3 RBC 3.82 3.70 - 5.40 m/mm3 Hemoglobin 12.4 11.5 - 16.0 g/dL Hematocrit 38.9 35.0 - 48.0 % MCV 101.8 78.0 - 100.0 fL MCH 32.5 27.0 - 34.0 pg MCHC 31.9 31.0 - 37.0 g/dL Platelet Count 269 130 - 450 k/mm3 RDW(sd) 55.6 38.0 - 49.0 fL RDW(cv) 14.6 11.0 - 15.0 % MPV 10.8 7.5 - 14.0 fL Segmented Neutrophils 71.1 Automa sonny Diff Lymphocytes 13.5 Monocytes 7.6 Eosinophils 6.8 Basophils 0.9 Absolute Neutrophil 5.54 1.60 - 9.30 k/uL Absolute Lymphocyte 1.05 0.60 - 5.50 k/uL Absolute Monocyte 0.59 0.10 - 1.60 k/uL Absolute Eosinophil 0.53 0.00 - 0.70 k/uL Absolute Basophil 0.07 0.00 - 0.20 k/uL Immature Granulocytes 0.1 Absolute Immature Granulocytes 0.01 0.00 - 0.10 k/uL NRBC RE, Nucleated Red Blood Cell Percent 0.0 0.0 - 1.0 % Food Allergy Profile with Re flexes Reviewed date:06/04/2023 03:05:13 PM Interpretation: Performing Lab:[facility] [id number] , [id number] [place] Notes/Report: Fasting: No Collins Conc IgE: <0.10 <0.10 kU/L Collins Class IgE: 0 0 Class Cashew Conc IgE: <0.10 <0.10 kU/L Cashew Class IgE: 0 0 Class Hazelnut Conc IgE: <0.10 <0.10 kU/L Hazelnut Class IgE: 0 0 Class Peanut Conc IgE: <0.10 <0.10 kU/L Peanut Class IgE: 0 0 Class Sesame Seed Conc IgE: <0.10 <0.10 kU/L Sesame Seed Class IgE: 0 0 Class Jud Conc IgE: <0.10 <0.10 kU/L Jud Class IgE: 0 0 Class Cow's Milk Conc IgE: <0.10 <0.10 kU/L Cow's Milk Class IgE: 0 0 Class Egg White Conc IgE: <0.10 <0.10 kU/L Egg White Class IgE: 0 0 Class Soybean Conc IgE: <0.10 <0.10 kU/L Soybean Class IgE: 0 0 Class Wheat Conc IgE: <0.10 <0.10 kU/L Wheat Class IgE: 0 0 Class Codfish Conc IgE: <0.10 <0.10 kU/L Codfish Class IgE: 0 0 Class [place] Conc IgE: <0.10 <0.10 kU/L [place] Class IgE: 0 0 Class Scallops Conc IgE: <0.10 <0.10 kU/L Scallops Class IgE: 0 0 Class Shrimp Conc IgE: <0.10 <0.10 kU/L Shrimp Class IgE: 0 0 Class Tuna Conc IgE: <0.10 <0.10 kU/L Tuna Class IgE: 0 0 Class PT (w/ INR) Reviewed date:09/06/2023 01:44:47 PM Interpretation: Performing Lab: Notes/Report: Pulmonary function test with diffusion capacity and lung volume Reviewed date:03/12/2023 12:36:49 PM Interpretation: Performing Lab: Notes/Report: Food Allergy Profile with Re flexes Reviewed date:09/07/2023 11:45:38 AM Interpretation: Performing Lab: Notes/Report: CBC With Differential/Platel et Reviewed date:09/07/2023 11:44:15 AM Interpretation: Performing Lab: Notes/Report: [facility] LILI Reviewed date:09/07/2023 11:45:15 AM Interpretation: Performing Lab: Notes/Report: COMPREHENSIVE METABOLIC PANE L Reviewed date:09/07/2023 11:43:55 AM Interpretation: Performing Lab: Notes/Report: COCCIDIOIDES COMP FIX Reviewed date:09/07/2023 11:45:54 AM Interpretation: Performing Lab: Notes/Report: IgE Reviewed date:09/07/2023 11:43:41 AM Interpretation: Performing Lab: Notes/Report: COCCIDIOIDES SCREEN w/IMDF C ONFIRM Reviewed date:09/07/2023 11:43:20 AM Interpretation: Performing Lab: Notes/Report: Reason For Referral No Information Medications Medication SIG (Take, Route, Frequency, Duration) Notes Start Date End Date Status Dextromethorphan-guaiFENesi n 10-100 MG/5ML 10 mL as needed Orally every 4 hrs for 30 days Active Albuterol Sulfate HFA 108 (90 Base) MCG/ACT 1 puff as needed Inhalation every 4 hrs for 30 days 12/13/2023 Active Aspirin 81 81 MG 1 tablet Orally Once a day Active Warfarin Sodium Acti ve Clopidogrel & Aspirin 75 mg Active Social History Tobacco Use: Social History Observation Description Date Details (start date - stop date) Former Smoker NA - NA Smoking Question Answer Notes Status: Former smoker smoked 2PPD x 15 yrs, quit in 1976 Problems Problem Type SNOMED Code ICD Code Onset Dates Problem Status W/U Status Risk Notes Problem COPD - Chronic obstructive pulmonary disease (47540264) COPD (chronic obstructive pulmonary disease) (J44.9) Active confirmed Problem Dyspnea (411433628) SOB (shortness of breath) (R06.02) Active confirmed Problem Lung field abnormal (291341044) Abnormal lung field (R91.8) Active confirmed Problem Personal history of primary malignant neoplasm of breast (556007955) History of breast cancer (Z85.3) Active confirmed Problem History of disease caused by severe acute respiratory syndrome coronavirus 2 (situation) (349089598777758 105) HISTORY OF COVID 19 (Z86.16) Active confirmed Problem Chronic cough (53240669) Chronic cough (R05.3) Active confirmed Vital Signs Oximetry 99% RA 03/29/2023 ER Blood pressure diastolic 68 03/29/2023 ER Height 65 in 05/07/2023 ER Blood pressure systolic 119 03/29/2023 ER Weight 170 lbs 05/07/2023 ER BMI 28.29 kg/m2 05/07/2023 ER Encounters Encounter Location Date Provider Diagnosis [address] [place] [address] 03/02/2023 Vibha Quiñones Lymphadenopathy R59. 1 ; SOB (shortness of breath) R06.02 ; Chronic cough R05.3 ; History of breast cancer Z85.3 and HISTORY OF COVID [address] Z86.[address] [place] [address] 03/29/2023 Paramjustin Kowalski SOB (shortness of breath) R06.02 ; Lymphadenopathy R59.1 ; Chronic cough R05.3 ; History of breast cancer Z85.3 and HISTORY OF COVID [address] Z86.[address] [place] [address] 04/20/2023 Paramveer Bhugra [address] [place] [address] 05/07/2023 Paramveer Meghana Lymphadenopathy R59. 1 ; Abnormal lung field R91.8 ; SOB (shortness of breath) R06.02 ; Chronic cough R05.3 ; History of breast cancer Z85.3 and HISTORY OF COVID 19 Z86.[address] [place] [address] 12/13/2023 Paramveer Jorgeugra COPD (chronic obstructive pulmonary disease) J44.9 ; Lymphadenopathy R59.1 ; Abnormal lung field R91.8 ; SOB (shortness of breath) R06.02 ; Chronic cough R05.3 ; History of breast cancer Z85.3 and HISTORY OF COVID 19 Z86.16 [facility] [address] [place] [address] 03/02/2023 Paramjustin [facility] [address] [place] [address] 05/07/2023 Paramjustin [facility] [address] [place] [address] 06/19/2023 Paramjustin [facility] [address] [place] [address] 12/26/2023 Paramjustin Kowalski Assessments Encounter Date Diagnosis (ICD Code) Assessment Notes Treat ment Notes Treatment Clinical Notes 03/02/2023 SOB (shortness of breath) (ICD-10 - R06.02) Check PFT 03/02/2023 Lymphadenopathy (ICD-10 - R59.1) 02/21/23 CT chest showing bilateral groundglass pulmonary opacities and mediastinal lymphadenopathy. Will scheduled patient for EBUS bronch with fluoro on 03/12/23 at 0900. Explained procedure with patient. Patient to hold Warfarin 03/04 and have STAT INR drawn 03/07. Patient on Warfarin for Afib and denies hx of mechanical valve. 03/29/2023 SOB (shortness of breath) (ICD-10 - R06.02) Check PFT. Scheduled for Apr 2023 05/07/2023 Abnormal lung field (ICD-10 - R91.8) 05/07/2023 Lymphadenopathy (ICD-10 - R59.1) 02/21/23 CT chest showing bilateral groundglass pulmonary opacities and mediastinal lymphadenopathy. Pt s/p EBUS bronch with fluoro on 03/12/[address] bx neg for malignancy and flow cyto is NEG. Lung bx also rnchial tissues. Will do a follow up Ct chest in future. Can order on next visit 05/07/23: will order CT today 12/13/2023 COPD (chronic obstructive pulmonary disease) (ICD-10 - J44.9) 12/07: PFT 05/09: moderate airflow obstruction, no BDL response, no restriction, Normal diffusion will trial Albuterol prn May consider LABA/LAMA at f/u if improvement w/ Albuterol 12/13/2023 Abnormal lung field (ICD-10 - R91.8) 12/07: CT 08/07: (1) Stable mosaic attenuation w/ intralobular septal thickening and subpleural reticulation/scarr ing. (2) no dense lobar consolidation/ acute findings. (3) Stable dilation of central PA, seen in setting of PHTN. (4) Advanced CAD Will order echo, repeat CT in 1mo 12/13/2023 Lymphadenopathy (ICD-10 - R59.1) 02/21/23 CT chest showing bilateral groundglass pulmonary opacities and mediastinal lymphadenopathy. Pt s/p EBUS bronch with fluoro on 03/12/[address] bx neg for malignancy and flow cyto is NEG. Lung bx also rnchial tissues. Will do a follow up Ct chest in future. Can order on next visit 05/07/23: will order CT today 12/07: No LAD noted on repeat CT 05/07/2023 SOB (shortness of breath) (ICD-10 - R06.02) Check PFT. Scheduled for Apr 2023 03/02/2023 Chronic cough (ICD-1 0 - R05.3) on Flonase 03/29/2023 Lymphadenopathy (ICD-10 - R59.1) 02/21/23 CT chest showing bilateral groundglass pulmonary opacities and mediastinal lymphadenopathy. Pt s/p EBUS bronch with fluoro on 03/12/[address] bx neg for malignancy and flow cyto is NEG. Lung bx also rnchial tissues. Will do a follow up Ct chest in future. Can order on next visit 03/02/2023 History of breast cancer (ICD-10 - Z85.3) follows with Dr. Mcgill 03/29/2023 Chronic cough (ICD-1 0 - R05.3) on Flonase 05/07/2023 Chronic cough (ICD-1 0 - R05.3) on Flonase 05/07/23: will order Cocci/Allergy labs today 12/13/2023 SOB (shortness of breath) (ICD-10 - R06.02) Check PFT. Scheduled for Apr 202312/07: PFT 05/09: moderate airflow obstruction, no BDL response, no restriction, Normal diffusion Will trial Albuterol prn 12/13/2023 Chronic cough (ICD-1 0 - R05.3) on Flonase 05/07/23: will order Cocci/Allergy labs today 05/07/2023 History of breast cancer (ICD-10 - Z85.3) follows with Dr. Buenrostro 03/02/2023 HISTORY OF COVID 19 (ICD-10 - Z86.16) 03/29/2023 History of breast cancer (ICD-10 - Z85.3) follows with Dr. Buenrostro 03/29/2023 HISTORY OF COVID 19 (ICD-10 - Z86.16) 05/07/2023 HISTORY OF COVID 19 (ICD-10 - Z86.16) 12/13/2023 History of breast cancer (ICD-10 - Z85.3) follows with Dr. Buenrostro 12/13/2023 HISTORY OF COVID 19 (ICD-10 - Z86.16) Plan Of Treatment Pending Test Test Name Order Date Echocardiogram 12/13/2023 CT - CHEST WITHOUT CONTRAST 05/07/2023 Next Appt Details Provider Name:Pauline Bliss jonah, 01/24/2024 10:15:00 AM, [address], [address], [place], [address], Insurance Providers Payer Name Payer Address Payer Phone Subscriber Number Group Number Insured Name Patient Relationship to Insured Coverage Start Date Coverage End Date MEDICARE PART B [address] [place] [address] [id number] Inez Castillo Self - patient is the insured 2 [place]BS OF [place] SUPPLEMENT PLAN [address] [place] [address] [id number] Inez Castillo Self - patient is the insured 4 Medical (General) History Medical History History ICD Code SOB Bronchitis Afib Surgical History Surgery Date(Month/Year) watchman procedure 09/06
--- OUTSIDE RECORDS SUMMARY | 2024-01-03 07:05 | XMS_ITS ---
Author Organization [facility] Address [address] [facility] [address] [place], [place] [id number] Care Team Providers Care Practical Ministries Professor Name Role Phone Alberto GREENFIELD, Raymond Primary Care Provider Pauline Abdul [phone] REASON FOR VISIT Needs echo appt Encounters Encounter Location Date Provider Diagnosis [facility] [address] [facility] [address] [place] [address] 12/26/2023 Pauline Kowalski Plan Of Treatment Next Appt Details Provider Name:Pauline mkcenzie, 01/24/2024 10:15:00 AM, [address] [facility], [address], [place], [address], Progress Notes * Inez CAGLE LadariusDOB:1945 (78 yo F)Acc No.[id number]:12/26/2023 Patient:?Inez CAGLE :1945???Age:78 Y???Sex:Female Address:[address] [place] [address] * true * Date:? Generated for Printi ng/Faмарияg/eTransmitting on:?01/03/2024 05:04 AM MST
--- OUTSIDE RECORDS SUMMARY | 2024-01-03 07:05 | XMS_ITS ---
Author Organization [facility] an [facility] Address [address] [address] [place], [place] [id number] Care Team Providers Care Setter Cold Rolling Machine Name Role Phone Alberto GREEN[place], [place] Primary Care Provider U Pauline Schwarz Unavailable [phone] Allergies Allergen (clinical drug ingredient) Drug/Non Drug Allergy documented on EMR Reaction Allergy Type Onset Date Status Vicodin Unknown Drug Allergy Active Substance with sulfonamide structure and antibacterial mechanism of action (substance) Sulfa Antibiotics Unknown Drug Allergy Active REASON FOR VISIT SOB, labs f/u Medications Medication SIG (Take, Route, Frequency, Duration) [...] Problem COPD - Chronic obstructive pulmonary disease (17113496) COPD (chronic obstructive pulmonary disease) (J44.9) Active confirmed Encounters Encounter Location Date Provider Diagnosis [facility] [address] [place] [address] 12/13/2023 Pauline Kowalski COPD (chronic obstructive pulmonary disease) J44.9 ; Lymphadenopathy R59.1 ; Abnormal lung field R91.8 ; SOB (shortness of breath) R06.02 ; Chronic cough R05.3 ; History of breast cancer Z85.3 and HISTORY OF COVID 19 Z86.16 Assessments Encounter Date Diagnosis (ICD Code) Assessment Notes Treat ment Notes Treatment Clinical Notes 12/13/2023 COPD (chronic obstructive pulmonary disease) (ICD-10 - J44.9) 12/07: PFT 05/09: moderate airflow obstruction, no BDL response, no restriction, Normal diffusion will trial Albuterol prn May consider LABA/LAMA at f/u if improvement w/ Albuterol 12/13/2023 Lymphadenopathy (ICD-10 - R59.1) 02/21/23 CT [...] 12/07: No LAD noted on repeat CT 12/13/2023 Abnormal lung field (ICD-10 - R91.8) 12/07: CT 08/07: (1) Stable mosaic attenuation w/ intralobular septal thickening and subpleural reticulation/scarr ing. (2) no dense lobar consolidation/ acute findings. (3) Stable dilation of central PA, seen in setting of PHTN. (4) Advanced CAD Will order echo, repeat CT in 1mo 12/13/2023 SOB (shortness of breath) (ICD-10 - R06.02) Check PFT. Scheduled for Apr 202312/07: PFT 05/09: moderate airflow obstruction, no BDL response, no restriction, Normal diffusion Will trial Albuterol prn 12/13/2023 Chronic cough (ICD-1 0 - R05.3) on Flonase 05/07/23: will order Cocci/Allergy labs today 12/13/2023 History of breast cancer (ICD-10 - Z85.3) follows with Dr. Buenrostro 12/13/2023 HISTORY OF COVID 19 (ICD-10 - Z86.16) Plan Of Treatment Medication Medication Name Sig Start Date Stop Date Notes Dextromethorphan-guaiFENesin 10-100 MG/5ML 10 mL as needed Orally every 4 hrs for 30 days Albuterol Sulfate HFA 108 (9 0 Base) MCG/ACT 1 puff as needed Inhalation every 4 hrs for 30 days 12/13/2023 Treatment Notes Assessment Notes COPD (chronic obstructive pulmonary dise ase) 12/07: PFT 05/09: moderate airflow obstruction, no BDL response, no restriction, Normal diffusion will trial Albuterol prn May consider LABA/LAMA at f/u if improvement w/ Albuterol Lymphadenopathy 02/21/23 CT chest showing bilateral groundglass pulmonary opacities and mediastinal lymphadenopathy. Pt s/p EBUS bronch with fluoro on 03/12/[address] bx neg for malignancy and flow cyto is NEG. Lung bx also rnchial tissues. Will do a follow up Ct chest in future. Can order on next visit 05/07/23: will order CT today 12/07: No LAD noted on repeat CT Abnormal lung field 12/07: CT 08/07: (1) Stable mosaic attenuation w/ intralobular septal thickening and subpleural reticulation/scarring. (2) no dense lobar consolidation/ acute findings. (3) Stable dilation of central PA, seen in setting of PHTN. (4) Advanced CAD Will order echo, repeat CT in 1mo SOB (shortness of breath) Check PFT. Scheduled for Apr 202312/07: PFT 05/09: moderate airflow obstruction, no BDL response, no restriction, Normal diffusion Will trial Albuterol prn Chronic cough on Flonase 05/07/23: will order Cocci/Allergy labs today History of breast cancer follows with Dr Tonio Buenrostro Pending Test Test Name Order Date Echocardiogram 12/13/2023 Future Test Test Name Order Date CT - CHEST WITHOUT CONTRAST 01/10/2024 Next Appt Details Follow Up: 2 Months, Reason: After CT, echo, trial of Albuterol Provider Name:Pauline mckenzie, 01/24/2024 10:15:00 AM, [address], [address], [place], [address], Progress Notes * Inez CAGLE LadariusDOB:1945 (78 yo F)Acc No.[id number]:12/13/2023 Progress Notes Patient:?Inez CAGLE J Provider:?Pauline Kowalski MD :1945???Age:78 Y???Sex:Female D ate:12/13/2023 Address:[address] [facility], [facility] Pcp:Raymond Dominguez MD Subjective: * Chief Complaints: * ???1. SOB, labs f/u. * HPI: ???Pulmonology:? Patient initially seen in February 2023 to establish pulmonary care for SOB, chronic cough and abnormal CT chest. 02/21/23 CT chest showing bilateral groundglass pulmonary opacities and mediastinal lymphadenopathy. Patient has a history of breast cancer s/p bilateral mastectomies in 2001. Patien had COVID 2.5 months ago but reports chronic SOB and dry cough for years. She reports wheeze and chest tightness as well. Patient denies hx of asthma, exposures or being around second hand smoke. She smoked 2ppd for 15 years and quit in 1976. Patient reports post-nasal drip for which she takes Flonase. FG-Pt seen today via Tele[facility] for PFT f/u. Pt having dry cough worse after PFT Albuterol Neb treatment. Pt did have wheezing but it resolved. Pt not using inhalers. Pt denies fever, h/a, SOB, body aches, night sweats. 12/07 SD: 78yo F seen in clinic for CT f/u. Pt c/o sob on exertion x 1yr. Pt has Afib and CHF, s/p watchman procedure in 09/06. Pt on DOAC, f/u w/ cardio Dr. Parson at [facility]. Will request MR. Pt [place] of states [place] 3 [place], and just getting recently. Denies any recent hospitalization/ Covid-19/ Flu/ RSV. Denies any fever, cough, chest tightness. * ROS:?Full 10 point ROS was prefomed. The pertinent positives and negatives are as per the HPI; otherwise all other systems are otherwise negative. * Medical History:?SOB, Bronch itis, Afib. * Surgical History:?watchman p rocedure 09/06. * Social History:?Tobacco Use:?Smoking: no?Status:?Former smoker smoked 2PPD x 15yrs, quit in 1976.?Denies any illicit drug abuse or alcohol abuse. * Medications:?Taking Clopidog rel & Aspirin , Notes to Pharmacist: 75 mg, Taking Aspirin 81 81 MG Tablet Delayed Release 1 tablet Orally Once a day , Taking Warfarin Sodium , Taking Dextromethorphan-guaiFENesin 10-100 MG/5ML Liquid 10 mL as needed Orally every 4 hrs * Allergies:?Sulfa Antibiotics , Vicodin. Objective: * Vitals:? * Examination: ???General Examination: ?GENERAL APPEARANCE:?alert, comfortable, in no acute distress, pleasant.?HEENT:?unremarkable, no conjunctival erythema, Pupils Equal, Round, Reactive to Light (PERRL), normocephalic/atraumatic.?NECK/THYROID:?no lymphadenopathy, supple.?CARDIOVASCULAR:?regular rate and rhythm, normal S1S2, regular rate and rhythm, no murmurs.?RESPIRATORY:?clear to auscultation bilaterally, no wheezes, rhonchi, rales.?GASTROINTESTINAL:?normal without tenderness, masses, or megaly, soft, non-tender/non-distended, bowel sounds present.?NEUROLOGIC EXAM:?alert and oriented x 3, non-focal exam.?SKIN:?normal, no rash.?EXTREMITIES:?no clubbing, no edema, no cyanosis.? Assessment: * Assessment: 1.?Abnormal lung field - R91 .8 (Primary)???2.?COPD (chronic obstructive pulmonary disease) - J44.9???3.?Lymphadenopathy - R59.1???4.?SOB (shortness of breath) - R06.02???5.?Chronic cough - R05.3???6. History of breast cancer - Z85.3???7.?HISTORY OF COVID 19 - Z86.16??? Plan: * Treatment: 2.?COPD (chronic obstructive pulmonary disease)? Notes: 12/07: PFT 05/09: moderate airflow obstruction, no BDL response, no restriction, Normal diffusion will trial Albuterol prn May consider LABA/LAMA at f/u if improvement w/ Albuterol ?? 3.?Lymphadenopathy? Notes:02/21/23 CT chest showing bilateral groundglass pulmonary opacities and mediastinal lymphadenopathy. Pt s/p EBUS bronch with fluoro on 03/12/[address] bx neg for malignancy and flow cyto is NEG. Lung bx also rnchial tissues. Will do a follow up Ct chest in future. Can order on next visit 05/07/23: will order CT today 12/07: No LAD noted on repeat CT?? 4.?SOB (shortness of breath) ? Start Albuterol Sulfate HFA Aerosol Solution, 108 (90 Base) MCG/ACT, 1 puff as needed, Inhalation, every 4 hrs, 30 days, 1, Refills 5.?? Notes: Check PFT. Scheduled for Apr 202312/07: PFT 05/09: moderate airflow obstruction, no BDL response, no restriction, Normal diffusion Will trial Albuterol prn ?? 5.?Chronic cough? Continue Dextromethorphan-guaiFENesin Liquid, 10-100 MG/5ML, 10 mL as needed, Orally, every 4 hrs, 30 days, 1800 ML, Refills 0.?? Notes: on Flonase 05/07/23: will order Cocci/Allergy labs today ?? 6.?History of breast cancer? Notes: follows with Dr. Buenrostro?? * Follow Up:?2 Months (Reason: After CT, echo, trial of Albuterol) * * Electronic signature of Para bess Kowalski MD on 01/03/2024 at 05:04 AM [facility] Sign off status: Pending * Provider:?Pauline Kowalski MD Date:? Generated for Adam blanco/Dion/Mannyitting on:?01/03/2024 05:04 AM [facility] History and Physical Notes * Examination Category Sub-Category Detail Notes General Examination HEENT: unremarkable , no conjunctival erythema, Pupils Equal, Round, Reactive to Light (PERRL), normocephalic/atraumatic NECK/THYROID: no lymphadenopathy, supple CARDIOVASCULAR: regular rate and rhy thm, normal S1S2, regular rate and rhythm, no murmurs RESPIRATORY: clear to auscultatio n bilaterally, no wheezes, rhonchi, rales GASTROINTESTINAL: normal without tende rness, masses, or megaly, soft, non-tender/non-distended, bowel sounds present EXTREMITIES: no clubbing, no yemi a, no cyanosis GENERAL APPEARANCE: alert, comfortable, in no acute distress, pleasant SKIN: normal, no rash NEUROLOGIC EXAM: alert and oriented x 3, non-focal exam
--- OUTSIDE RECORDS SUMMARY | 2024-01-03 07:06 | XMS_ITS | Patient Health Record ---
Author Organization [facility] Address [address] [place] [address] Care Team Providers Care Criminal Researcher Name Role Phone Raymond Dominguez Primary Care Provider Unav ailable ILA BEE Unavailable [phone] Allergies Allergen (clinical drug ingredient) Drug/Non Drug Allergy documented on EMR Reaction Allergy Type Onset Date Status lisinopril Lisinopril cough Drug Allergy Activ e sulfacetamide Sulfacetamide Sodium Unknown Drug Allergy Active Vicodin Unknown Drug Allergy Active Reason For Referral No Information Medications Medication SIG (Take, Route, Frequency, Duration) Notes Start Date End Date Status Vitamin E 400 UNIT 1 capsule Orally Onc e a day Active Vitamin B12 500 MCG 1 tablet Orally Once a day Active Magnesium 300 MG 1 capsule with a reinier l Orally Once a day Active Warfarin Sodium 2 MG as directed Orally 2 tablets daily except Sunday's and Sunday's 3 tablets for 90 days 12/25/2019 Active CoQ10 100 MG 1 capsule with a reinier l Orally Once a day Active Flecainide Acetate 100 MG TAKE 1 TABLET BY MOUTH TWICE DAILY FOR 90 DAYS for 90 Active traMADol HCl 50 MG 1 tablet as needed Orally Once a day Active Cardizem CD 240 MG 1 capsule Orally Onc e a day for 30 day(s) Active CeleBREX 100 MG 1 capsule with food Orally Once a day Not-Taking Omeprazole 20 MG 1 capsule 30 minutes before morning meal Orally Once a day Active Valsartan 320 MG 1 tablet Orally Once a day for 90 days 08/26/2020 Active Tylenol 325 MG 1 tablet as needed Orally every 4 hrs Active Ruth-[place] Plus Cold 2-7.8-325 MG 2 tablets dissolved in 4 ounces of water as needed Orally Four times a day Active Biotin 1000 MCG 1 tablet Orally Once a day Active Iron 28 MG 1 tablet Orally Once a day Active Problems Problem Type SNOMED Code ICD Code Onset Dates Problem Status W/U Status Risk Notes Problem 802569211 Shortness of breath (R06.02) Active confirmed Problem 30963653 Other chest pain (R07.89) Active confirmed Problem 48107933 Essential hypertension (I10) Active confirmed Problem 301580913 PAF (paroxysmal atrial fibrillation) (I48.0) Active confirmed Problem 07381662 SSS (sick sinus syndrome) (I49.5) Active confirmed Plan Of Treatment Pending Test Test Name Order Date Echocardiogram 12/25/2019 Electrocardiogram (ECG) 01/09/2019 Electrocardiogram (ECG) 12/25/2019 Lipid Panel 12/26/2019 Exercise Nuclear Stress Test 12/25/2019 Insurance Providers Payer Name Payer Address Payer Phone Subscriber Number Group Number Insured Name Patient Relationship to Insured Coverage Start Date Coverage End Date [facility] icare [address] [place] [address] [id number] Inez Castillo Self - patient is the insured [place] [address] [place] [address] [phone] [id number] Inez Castillo Self - patient is the insured Medical (General) History Medical History History ICD Code PAF PUD s/p PRBC SSS s/p Biotronik PPM Bilat breast cancer TIA Surgical History Surgery Date(Month/Year) Breast augmentation cataract extraction Knee replacement mastectomy pacemaker implant total hysterectomy tubal ligation Hip replacement 06.24.20
--- OUTSIDE RECORDS SUMMARY | 2024-01-03 07:06 | XMS_ITS | Patient Health Record ---
Author Organization [facility] Address [address] [place] [address] Care Team Providers Care Veneer Matcher Name Role Phone Lm Giraldo Primary Care Provider Raymond Dominguez Unavailable MartaIrma Unavailable [phone] Arcenio Haleyyna Unavailable [phone] Allergies Allergen (clinical drug ingredient) Drug/Non Drug Allergy documented on EMR Reaction Allergy Type Onset Date Status Vicodin Unknown Drug Allergy Active Substance with sulfonamide structure and antibacterial mechanism of action (substance) Sulfa Antibiotics Unknown Drug Allergy Active Results Component Value Reference Range Notes Urogram with Reflex to Cultu re Reviewed date:01/22/2023 09:40:14 AM Interpretation: Performing Lab:[facility] [place] [facility] [address] Notes/Report: Fasting: Yes 0; 0; 0; 0; 0; 0 Color, Urine Normal Normal Clarity, Urine Clear Clear Specific [place], Urine 1.015 1.005 - 1.030 Leukocyte Esterase, Urine Qualitative Moderate Negative Nitrite, Urine Qualitative Negative Negative pH, Urine 8.0 5.0 - 8.0 Blood, Urine Qualitative Negative Negative Glucose, Urine Qualitative Negative Negative mg/dL Ketones, Urine Qualitative Negative Negative Urobilinogen, Urine Qualitative Normal Normal EU/dL Bilirubin, Urine Qualitative Negative Negative Protein, Urine Qualitative Negative Negative mg/dL Vitamin B12 and Folate Reviewed date:01/22/2023 09:40:14 AM Interpretation: Performing Lab:[facility] [place] [facility] [address], [id number] Notes/Report: Fasting: Yes 0; 0; 0; 0; 0; 0 Vitamin B12 375 232 - 1245 pg/mL Folate 5.3 >=4.0 ng/mL Serum for folat e determinations should be collected as a fasting test. CBC w/ Differential, w/ Plat elet Reviewed date:01/22/2023 09:40:14 AM Interpretation: Performing Lab:[facility] [place] [address], [id number] Notes/Report: Fasting: Yes 0; 0; 0; 0; 0; 0 WBC 6.2 4.0 - 11.0 k/mm3 RBC 3.63 3.70 - 5.40 m/mm3 Hemoglobin 10.9 11.5 - 16.0 g/dL Hematocrit 36.1 35.0 - 48.0 % MCV 99.4 78.0 - 100.0 fL MCH 30.0 27.0 - 34.0 pg MCHC 30.2 31.0 - 37.0 g/dL Platelet Count 306 130 - 450 k/mm3 RDW(sd) 58.6 38.0 - 49.0 fL RDW(cv) 15.9 11.0 - 15.0 % MPV 10.7 7.5 - 14.0 fL Segmented Neutrophils 64.2 [place] sonny Diff Lymphocytes 16.3 Monocytes 10.0 Eosinophils 8.2 Basophils 1.1 Absolute Neutrophil 3.97 1.60 - 9.30 k/uL Absolute Lymphocyte 1.01 0.60 - 5.50 k/uL Absolute Monocyte 0.62 0.10 - 1.60 k/uL Absolute Eosinophil 0.51 0.00 - 0.70 k/uL Absolute Basophil 0.07 0.00 - 0.20 k/uL Immature Granulocytes 0.2 Absolute Immature Granulocytes 0.01 0.00 - 0.10 k/uL NRBC RE, Nucleated Red Blood Cell Percent 0.0 0.0 - 1.0 % TSH with Reflex Free T4 Reviewed date:01/22/2023 09:40:14 AM Interpretation: Performing Lab:[facility] [place] [address], [id number] Notes/Report: Fasting: Yes 0; 0; 0; 0; 0; 0 TSH, High Sensitivity 6.93 0.27 - 4.20 mU/L Lipid Panel - SQ Reviewed date:01/22/2023 09:40:14 AM Interpretation: Performing Lab:[facility] [address], [id number] Notes/Report: Fasting: Yes 0; 0; 0; 0; 0; 0 Cholesterol 229 <=199 mg/dL Triglyceride 202 <=149 mg/dL Cholesterol/HDL Ratio 4.3 <=4.4 HDL Cholesterol 53 >=50 mg/dL Non-HDL Cholesterol 176 <=129 mg/dL LDL Cholesterol, Calculated 144 <=99 mg/dL levels of <100 mg/dL and <70 mg/dL, respectively, should be considered. LDL-C is calculated by using the Isaac-Velasco equation. (AIXA. 2013;310(19):4424-3153) Circulation 2004; 110:227-239. For moderately high risk and high risk cardiac patients, reference VLDL Cholesterol 32 <=29 mg/dL CMP-Comprehensive Metabolic Panel w/eGFR Reviewed date:01/22/2023 10:01:14 AM Interpretation: Performing Lab:[facility] [id number] Notes/Report: Fasting: Yes 0; 0; 0; 0; 0; 0 Glucose 108 70 - 99 mg/dL Glucose refere nce range reflects fasting state. Urea Nitrogen (BUN) 15 8 - 36 mg/dL Creatinine 0.87 0.51 - 1.08 mg/dL eGFRcr CKD-EPI 68 >=60 mL/min/1.73m2 eGFRcr calculated using the CKD-EPI 2020 equation BUN/Creatinine Ratio 17.2 10.0 - 28.0 Sodium 141 135 - 145 mmol/L Potassium 4.3 3.6 - 5.3 mmol/L Chloride 104 95 - 109 mmol/L Carbon Dioxide (CO2) 26 20 - 31 mmol/L Anion Gap 11 4 - 18 Protein, Total 7.0 6.0 - 7.7 g/dL Albumin 4.3 3.8 - 5.1 g/dL Globulin 2.7 1.7 - 3.3 g/dL Albumin/Globulin Ratio 1.6 1.3 - 2.7 Calcium 9.0 8.7 - 10.4 mg/dL Alkaline Phosphatase 99 42 - 146 IU/L Alanine Aminotransferase 12 5 - 46 IU/L Aspartate Aminotransferase 15 11 - 40 IU/L Bilirubin, Total 0.3 <=1.3 mg/dL Culture, Urine (Reflex) Reviewed date:01/22/2023 09:40:15 AM Interpretation: Performing Lab:[facility] [address], [id number] Notes/Report: Fasting: Yes 0; 0; 0; 0; 0; 0 Culture, Urine (Reflex) See Comment Comment(s): Gram neg bacilli; Culture: Culture, Urine (Reflex) suggested to confirm presence of the same isolate, or Urine is set up at a 1:1000 dilution. call the Microbiology Department for consultation. may not be the cause of any symptoms present. If clinically warranted, repeat culture of urine is Status: Preliminary Isolates in this quantity often indicate urogenital contamination and Gram negative bacilli <10,000 CFU/mL T4 Free Non-Dialysis Reviewed date:01/22/2023 09:40:14 AM Interpretation: Performing Lab:[facility] , [id number] Notes/Report: Fasting: Yes 0; 0; 0; 0; 0; 0 T4 Free Non-Dialysis 0.9 0.8 - 1.7 ng/dL Reason For Referral Reason Due for skin check, neoplasm of uncertain behavior on left lateral knee Consult and treat Diagnosis 1 Screening for skin c manjinder (Z12.83) Referral Organization [facility]. Referring Provider First Name Irma Referring Provider Last Name Marta Referring Provider Speciality Internal M edicine Referred Provider Yara Means Referred Provider Specialty Dermatology General Notes Tate Frias 2022 04:59:46 PM >Yara Means PA-C, [facility] ; [address] [facility], [address] [place], [address], , Referral Priority Routine Medications Medication SIG (Take, Route, Frequency, Duration) Notes Start Date End Date Status Warfarin Sodium 6 MG 6mg three days and 4mg four days Orally as directed Active Flecainide Acetate 100 MG as directed Orally twice a day (bid) Active [place] 150 MG 2 TAB Orally daily *please rev iew for potential _update for e-prescription and drug interaction check* Active Omeprazole 20 MG 1 tablet Orally daily Active dilTIAZem HCl ER 240 MG 1 capsule Orally Once a day Active Amoxicillin-Pot Clavulanate 500-125 MG 1 tablet Orally every 12 hrs Active Tylenol Active Magnesium Oxide Acti ve Social History Alcohol Screen (Audit-C) Question Answer Notes Did you have a drink contain ing alcohol in the past year? Yes How often did you have a dri nk containing alcohol in the past year? Monthly or less (1 point) How many drinks did you have on a typical day when you were drinking in the past year? 1 or 2 drinks (0 point) How often did you have 6 or more drinks on one occasion in the past year? Never (0 point) Points 1 Interpretation Negative Problems Problem Type SNOMED Code ICD Code Onset Dates Problem Status W/U Status Risk Notes Problem 237920248 Malignant neopla sm of unspecified site of right female breast (C50.911) Active confirmed Problem 069636103 Malignant neopla sm of unspecified site of left female breast (C50.912) Active confirmed Problem 4551580 Otitis externa i n other diseases classified elsewhere, right ear (H62.41) Active confirmed Problem 907830974 Paroxysmal atria l fibrillation (I48.0) Active confirmed Problem 56501145 Sick sinus syndr ome (I49.5) Active confirmed Problem 48213860 Essential hypert ension (I10) Active confirmed Problem 77314924 Macrocytic anemi a (D53.9) Active confirmed Problem 653940705 Pacemaker (Z95.0) Active confirmed Problem 02431318 Iron deficiency anemia, unspecified iron deficiency anemia type (D50.9) Active confirmed Problem 640625384 Pure hypercholesterolemia (E78.00) Active confirmed Problem 04676638 Hyperlipidemia, unspecified hyperlipidemia type (E78.5) Active confirmed Problem 25979593 Atrial fibrillat ion, unspecified type (I48.91) Active confirmed Problem 051330712 Hx of breast can cer (Z85.3) Active confirmed Problem 77563030 Warfarin anticoagulation (Z79.01) Active confirmed Problem 239846919 Hx TIA/stroke w/ o resid (Z86.73) Active confirmed Vital Signs Temperature 98.0 degrees Fahrenheit 01/18/2023 Resp iration 14 Oximetry 95 % 01/18/2023 Respiration 14 Weight-kg 77.11 kg 01/18/2023 Respiration 14 Height 64.5 in 01/18/2023 Respiration 14 Weight 170 lbs 01/18/2023 Respiration 14 BMI 28.73 kg/m2 01/18/2023 Respiration 14 Encounters Encounter Location Date Provider Diagnosis [facility] [address] [place] [address] 01/25/2023 Raymond Dominguez [facility] [place] [address] 01/18/2023 Irma Lozano Essential hypertensi on I10 ; Encounter for general adult medical examination with abnormal findings Z00.01 ; Paroxysmal atrial fibrillation I48.0 ; Sick sinus syndrome I49.5 ; Pacemaker Z95.0 ; Warfarin anticoagulation Z79.01 ; Macrocytic anemia D53.9 ; Pure hypercholesterolemia E78.00 ; Hx of breast cancer Z85.3 ; Screening for colon cancer Z12.11 ; Screening for osteoporosis Z13.820 ; Hx TIA/stroke w/o resid Z86.73 ; BMI 28.0-28.9,adult Z68.28 ; Screening for depression Z13.31 ; Sensation of fullness in right ear H93.8X1 ; Right upper quadrant pain R10.11 ; Screening for skin cancer Z12.83 ; Superficial mycosis, unspecified B36.9 and Otitis externa in other diseases classified elsewhere, right ear H62.41 Assessments Encounter Date Diagnosis (ICD Code) Assessment Notes Treatment Notes Treatment Clinical Notes 01/18/2023 Encounter for genera l adult medical examination with abnormal findings (ICD-10 - Z00.01) Shared decision making made with all preventative orders and recommendations according to current guidelines and patient's level of comfort. 01/18/2023 Essential hypertensi on (ICD-10 - I10) Limit sodium to 2000mg daily, exercise 150 minutes weekly and monitor BP. If persistently >140/90 follow up in office. 01/18/2023 Paroxysmal atrial fibrillation (ICD-10 - I48.0) Followed by Dr. Parson Has undergone 2 ablations in past (unsuccesful), pacemaker in place. 01/18/2023 Sick sinus syndrome (ICD-10 - I49.5) S/p PPM followed by cardiology 01/18/2023 Pacemaker (ICD-10 - Z95.0) 01/18/2023 Warfarin anticoagula tion (ICD-10 - Z79.01) Cardiology follows - she is anticipating Watchman procedure in the future 01/18/2023 Macrocytic anemia (I CD-10 - D53.9) Hgb 11.2, Hct 37.4%, MCV 102.7, normal iron studies Chronic per patient, will recheck labs and follow closely 01/18/2023 Pure hypercholestero lemia (ICD-10 - E78.00) Check labs 01/18/2023 Hx of breast cancer (ICD-10 - Z85.3) Post mastectomy with adjuvant radiation, followed by Dr. Ugalde 01/18/2023 Screening for colon cancer (ICD-10 - Z12.11) Last cscopy 04/01/2019, next due 202301/18/2023 Screening for osteoporosis (ICD-10 - Z13.820) Recommend DEXA but she declines 01/18/2023 Hx TIA/stroke w/o re celeste (ICD-10 - Z86.73) On AC, refuses statin. CVA FAST symptoms reviewed 01/18/2023 BMI 28.0-28.9,adult (ICD-10 - Z68.28) 01/18/2023 Screening for depres devorah (ICD-10 - Z13.31) PHQ9 = 8 today. Declines rx management. - Recommend treatment with counselor or psychologist - Lifestyle modification such as exercise, yoga, meditation and/or acupuncture beneficial - eat well, get 7-8 hours of sleep nightly, stress management 01/18/2023 Sensation of fullnes s in right ear (ICD-10 - H93.8X1) 01/18/2023 Right upper quadrant pain (ICD-10 - R10.11) Ddx: biliary colic or cholelithiasis and I recommended ultrasound to better assess but she declines. She will let me know if she changes her mind or if she has any increasing acute abdominal pain, nausea, emesis I recommend ER to rule out cholecystitis. Discussed following a modified diet low in fried, greasy or fatty foods. 01/18/2023 Screening for skin c ancer (ICD-10 - Z12.83) 01/18/2023 Superficial mycosis, unspecified (ICD-10 - B36.9) Suspected mycotic infection in right ear, she was prescribed Clotrimazole solution/drops to use for one week and I'd like to see her back at that time. If no improvement consider ENT consult. If any onset of hearing loss or ear pain follow up in office FAY 01/18/2023 Otitis externa in ot her diseases classified elsewhere, right ear (ICD-10 - H62.41) See above Plan Of Treatment Pending Test Test Name Order Date Lipid Panel w/rflx LDL Direct 05/11/2022 CBC w/ Differential, w/ Platelet 021 CBC w/ Differential, w/ Platelet 021 CBC w/ Differential, w/ Platelet 021 X ray : Chest (PA lateral) 11/12/2020 Next Appt Details Provider Name:Lm Giraldo, 01/29/2024 08:00:00 AM, [address] [facility], [address], [place], [address], Insurance Providers Payer Name Payer Address Payer Phone Subscriber Number Group Number Insured Name Patient Relationship to Insured Coverage Start Date Coverage End Date Medicare Part B [address] [place] [address] [phone] [id number] Inez Castillo Self - patient is the insured [employer] [address] [place] [address] [id number] Jonathan Inez Self - patient is the insured Medical (General) History Surgical History Surgery Date(Month/Year) Bilateral hip arthroplasties 2020 Cardiac ablation 2015, 2020 Breast cancer surgery 2014
== END 2023-12-31 09:43 | disposition home or self-care (01) ==
LOC: NFLDREF 01-03 07:02
PROVIDERS: Visit Provider Family Medicine
DX: N39.0 Urinary tract infection, site not specified (principal)
CPT/HCPCS: 87086; 87186